=== PATIENT | female | born 1970 | race Caucasian/White ===

== ENCOUNTER 2017-02-10 12:08 | Emergency (ER) | payer BC ==
[~2017-02-10] VITALS: Ht 170.2 cm; Wt 58.1 kg
--- NOTE | 2017-02-10 12:43 | Emergency Room Report ---
History of Present Illness General Chief Complaint: Upper Extremity Injury Source: Patient Present Illness HPI 46 YO Female presents to the ED c/o Itching, swelling, and erythema of right ring finger since last night approx. 6pm after being stung by a bee.. Pt states her ring has been stuck on her finger and she is unable to remove it. denies loss of sensation, or significant skin discoloration other that localized erythema about where the sting occurred. Pt states she has not taken any medications for her symptoms. Denies cough, wheezing, SOB, or swelling of the lips, tongue, or airway. Denies trauma or fall. Denies numbness tingling or loss of sensation or gross motor movements of the extremities, incontinence of bowel or bladder. Denies CP, Palpitations, LOC, AMS, dizziness, Changes in Vision, Sensation, paresthesias, or a sudden severe headache. Allergies: Coded Allergies: PENICILLINS (Verified Allergy, Mild, Itching, 02/10/17) Patient History Past Medical History: see triage record Past Surgical History: none Pertinent Family History: none Last Menstrual Period: n/a Now: No Reviewed Nursing Documentation: PMH: Agreed, PSxH: Agreed Nursing Documentation-PMH Past Medical History: No Stated History Review of Systems All Other Systems: negative except mentioned in HPI Physical Exam Vital Signs Date Time Temp Pulse Resp B/P Pulse Ox O2 Delivery O2 Flow Rate FiO2 02/10/17 12:18 98.2 63 102/64 99 Room Air Sp02 EP Interpretation: reviewed, normal General Appearance: no apparent distress, alert, GCS 15, non-toxic Head: normocephalic, atraumatic Eyes: bilateral eye PERRL, bilateral eye normal inspection ENT: hearing grossly normal, normal pharynx, no angioedema, normal voice Neck: full range of motion, supple/symm/no masses Respiratory: lungs clear, normal breath sounds, no wheezing, speaking full sentences Cardiovascular #1: regular rate, rhythm, normal capillary refill Rectal: deferred Genitourinary: normal inspection, no CVA tenderness Musculoskeletal: back normal, gait/station normal, normal range of motion, swelling, tender - localized swelling, tenderness and erythema of the mid right ring finger, distal capillary refill intact and less than 2 Neurologic: alert, oriented x3, responsive, motor strength/tone normal, sensory intact, speech normal Psychiatric: judgement/insight normal, memory normal, mood/affect normal Skin: normal color, warm/dry, well hydrated, rash - localized swelling, tenderness and erythema of the mid right ring finger Medical Decision Making PA Attestation Dr. hodges is my supervising Physician whom patient management has been discussed with. Diagnostic Impression: Primary Impression: Bee sting reaction Qualified Codes: T63.444A - Toxic effect of venom of bees, undetermined, initial encounter Additional Impression: Cellulitis Qualified Codes: L03.011 - Cellulitis of right finger ER Course 46 YO Female presents to the ED c/o Itching, swelling, and erythema of right ring finger since last night approx. 6pm after being stung by a bee.. Pt states her ring has been stuck on her finger and she is unable to remove it. denies loss of sensation, or significant skin discoloration other that localized erythema about where the sting occurred. Pt states she has not taken any medications for her symptoms. Denies cough, wheezing, SOB, or swelling of the lips, tongue, or airway. Denies trauma or fall. Denies numbness tingling or loss of sensation or gross motor movements of the extremities, incontinence of bowel or bladder. Denies CP, Palpitations, LOC, AMS, dizziness, Changes in Vision, Sensation, paresthesias, or a sudden severe headache. Ddx considered but are not limited to cellulitis, scabies, insect bites, tic bites, spider bites, contact dermatitis, Drug reaction, allergic reaction, fungal infection, circulatory compromise. Vital signs: are WNL, pt. is afebrile H&PE are most consistent with bee sting to the right ring finger with localized reaction requiring ring removal, and will treat prophylactically for cellulitis due to erythema and increased temperature to palpation. ORDERS: none required at this time, the diagnosis is clinical ED INTERVENTIONS: -Removal of ring from right ring finger. - ICE Pack was applied for swelling / pain. re-evaluation pt. has good capillary refill, localized swelling and localized erythema persists. d/w pt. will treat with conservative therapy as outpatient and to follow up with PCP, d/w pt. to return promptly with worsening or new symptoms. DISCHARGE: At this time pt. is stable for d/c to home. Will provide printed patient care instructions, and any necessary prescriptions. Care plan and follow up instructions have been discussed with the patient prior to discharge. Last Vital Signs Date Time Temp Pulse Resp B/P Pulse Ox O2 Delivery O2 Flow Rate FiO2 02/10/17 12:18 98.2 63 102/64 99 Room Air Disposition: HOME, SELF-CARE Condition: Stable Scripts Hydrocortisone (Hydrocortisone Cream 2.5%) Y Cream.appl 1 APPLIC TP BID, #28.5 GM Prov: Jaye Dutton 02/10/17 Diphenhydramine Hcl (BENADRYL ALLERGY) 25 Mg Tablet 25 MG PO QID for 5 Days, #20 TAB Prov: Jaye Dutton 02/10/17 Doxycycline Hyclate* (VIBRAMYCIN*) 100 Mg Capsule 100 MG ORAL EVERY 12 HOURS for 7 Days, #14 CAP 0 Refills Prov: Jaye Dutton 02/10/17 Patient Instructions: Bee, Wasp, or Hornet Sting Additional Instructions: Take medications as directed. Follow up with a Primary Care Provider in 3-5 days, even if your symptoms have resolved. --Please review list of primary care clinics, if you do not already have a primary care provider Return sooner to ED if new symptoms occur, or current symptoms become worse. Do not drink alcohol, drive, or operate heavy machinery while taking benadryl as this may cause drowsiness. - Please note that this Emergency Department Report was dictated using [employer] support analyst technology software, occasionally this can lead to erroneous entry secondary to interpretation by the dictation equipment. Jaye Dutton Feb 10, 2017 12:43
[2017-02-10] MEDS ORDERED: HYDROCORTISONE30 G2 TP (12:45)
[2017-02-10] MEDS ORDERED: BENADRYL ALLERG25 M1 PO (12:45)
[2017-02-10] MEDS ORDERED: VIBRAMYCIN100 MG ORAL (12:45)
[2017-02-10 12:54] VITALS: BP 102/64
== END 2017-02-10 12:56 | disposition home or self-care (01) ==
LOC: EMR 12:47
DX: T63.441A Toxic effect of venom of bees, accidental (unintentional), initial encounter (principal); Y92.89 Other specified places as the place of occurrence of the external cause; L03.011 Cellulitis of right finger; Z88.0 Allergy status to penicillin
CPT/HCPCS: 99284